=== PATIENT | male | born 1995 | race Caucasian/White ===

== ENCOUNTER 2018-03-05 18:35 | Day surgery (SDC) | payer MEDICAID, SELFPAY ==
[~2018-03-05 18:35] MED LIST: Iopamidol 370 76% 100 ML VIAL ONE
[2018-03-05 19:30] LABS: #Basophils 0.1 thou/uL (0.0-0.2); #Eosinphils 0.4 thou/uL (0.0-0.7); #Lymphocytes 2.1 thou/uL (1.20-3.40); #Monocytes 0.7 thou/uL (0.11-0.59); #Neutrophils 4.9 thou/uL (1.40-6.50); %Basophils 0.7 % (0.0-1.0); %Eosinophils 4.5 % (0.0-10.0); %Lymphocytes 25.5 % (21.0-51.0); %Monocytes 8.4 % (0.0-10.0); %Neutrophils 60.9 % (42.0-75.0); Mean Corpuscular Hemoglobin 30.4 pg (27.0-31.0); Mean Corpuscular Volume 89.4 fL (78.0-98.0); Mean Platelet Volume 7.9 fL (7.4-10.4); Platelet Count 208 thou/uL (130-400); RBC Distribution Width 12.3 % (11.5-14.5); Red Blood Cell (RBC) Count 5.26 mill/uL (4.70-6.10); White Blood Cell (WBC) Count 8.1 thou/uL (4.8-10.8)
[2018-03-05 19:50] LABS: ALT (SGPT) 20 U/L (8-55); AST (SGOT) 24 U/L (5-34); Albumin 4.7 g/dL (3.5-5.0); Alkaline Phosphatase 69 U/L (40-150); Anion Gap 13 mmol/L (10-20); BUN (Urea Nitrogen) 15 mg/dL (8.9-20.6); Bilirubin, Total 2.9 mg/dL (0.2-1.2); Calc. Creatinine Clearance 0 mL/min (70-130); Calcium 9.6 mg/dL (7.8-10.44); Carbon Dioxide 25 mmol/L (22-29); Chloride 105 mmol/L (98-107); Estimated GFR-MDRD Greater than 90; Globulin 2.9 g/dL (2.4-3.5); Glucose 83 mg/dL (70-105); Protein, Total 7.6 g/dL (6.0-8.3); Sodium 139 mmol/L (136-145)
--- NOTE | 2018-03-05 21:59 | CT ---
CT OF THE SOFT TISSUES OF THE NECK WITH IV CONTRAST 03/05/18 INDICATION: Possible foreign body stuck in the throat. COMPARISON: None. FINDINGS: The visualized intracranial contents are unremarkable appearing. The parotid and submandibular glands are normal appearing. The thyroid gland is normal appearing. No pathologically enlarged lymph nodes are evident. The visualized aerodigestive tract is unremarkable a ppearing. No definite radiopaque foreign body is seen within the visualized aerodigestive tract. The lung apices are clear. There is ectasia of the ascending aorta measuring up to 4.1 cm. The aortic arch measures 2.8 cm. No d efinite acute osseous abnormality is evident. IMPRESSION: 1. No visible foreign body seen within the visualized aerodigestive tract. 2. Ectasia of the ascending aorta. Followup with cardiology for echocardiogram is recommended. POS: ANÍBAL
[2018-03-05] MEDS ORDERED: Midazolam HCl 2 mg/2 ml Vial ONE (22:28)
[2018-03-05] MEDS ORDERED: Fentanyl 100 MCG/2 ML VIAL ONE (22:28)
--- NOTE | 2018-03-06 04:55 | CON ---
DATE OF CONSULTATION: 03/05/2018 GASTROENTEROLOGY ER CONSULTATION CHIEF COMPLAINT: "Food stuck in my esophagus." HISTORY OF PRESENT ILLNESS: Mr. Tinajero is a 22-year-old man, who swallowed several bites of steak last night at 7:00 p.m. over 24 hours ago. The food has been stuck ever since he has been unable to tolerate any fluids or anything else to eat or drink since then. He had one episode of similar dysph agia a few days ago that was resolved by vomiting the bolus back up. He reports frequent acid reflux symptoms. PAST MEDICAL HISTORY: Gastroesophageal reflux. PAST SURGICAL HISTORY: Otherwise negative. FAMILY HISTORY: Negative for GI malignancies. SOCIAL HISTORY: He drinks 6-12 beers a few days per week. He has a past use of marijuana and metham phetamine, but not recently. He smokes. ALLERGIES: CODEINE. MEDICATIONS: He takes BC powder frequently for headaches or toothache. He has been on ranitidine in the past for reflux, but not any time recently. REVIEW OF SYSTEMS: Negative x10 systems reviewed except as stated in the history of present illness. PHYSICAL EXAMINATION:. GENERAL: He is in no acute distress, alert and oriented x3. HEENT: Eyes have no scleral icterus. Oropharynx is clear without lesions. NECK: No cervical or supraclavicular lymphadenopathy. LUNGS: Clear to auscultation bilaterally. HEART: Regular rate and rhythm without murmur. ABDOMEN: Soft, nontender, nondistended. Bowel sounds are present. EXTREMITIES: No lower extremity edema. IMPRESSION: Esophageal food bolus impaction with steak and this has been present for over 24 hours. PLAN: Esophagogastroduodenoscopy with removal of foreign body.
--- NOTE | 2018-03-06 06:25 | OP ---
DATE OF PROCEDURE: 03/05/2018 PROCEDURE: Esophagogastroduodenoscopy with biopsy and removal of foreign body. PREOPERATIVE DIAGNOSIS: Esophageal food bolus impaction. OPERATIVE NOTE: Informed consent was obtained from the patient. He was sedated with general anesthe ben. The endoscope was advanced to the esophagus where large meat bolus impaction was encountered. This was removed in several pieces with a snare. The esophagus was eventually cleared and then the r emaining pieces could be pushed through to the stomach with the scope. He had concentric rings and v ertical furrows through the esophagus consistent with eosinophilic esophagitis. He did have focal ul ceration and inflammation at the distal esophagus. The GE junction had some irregular mucosa which w as biopsied. Biopsies were taken from the distal and proximal esophagus as well to evaluate for eosi nophilic esophagitis. Stomach had erosive gastritis in the antrum. Biopsies were obtained to rule o ut H. pylori. Retroflex views in the stomach were normal. The pylorus and first and second portions of the duodenum were normal. IMPRESSION: 1. Esophageal foreign body removed with the snare. 2. Esophageal findings suggestive of eosinophilic esophagitis with concentric rings and vertical fur rows. Biopsies were obtained to evaluate for eosinophilic esophagitis. 3. Ulceration and inflammation at the distal esophagus and GE junction. Biopsies were obtained. 4. Erosive gastritis likely secondary to the BC powder which contains aspirin. RECOMMENDATIONS: 1. Await histopathology. 2. Proton pump inhibitor twice daily with omeprazole 20 mg over the counter. 3. Follow up in GI clinic. Followup endoscopy can be performed depending on biopsy results. 4. If the biopsies do confirm eosinophilic esophagitis fluticasone and referral for food aller gy testing could be performed.
== END 2018-03-06 01:03 | disposition home or self-care (01) ==
LOC: ERS 18:35 → SDC/OP 23:51
PROVIDERS: ATTEND Internal Medicine Gastroenterology
DX: T18.128A Food in esophagus causing other injury, initial encounter (principal); K22.10 Ulcer of esophagus without bleeding; K29.60 Other gastritis without bleeding; K21.9 Gastro-esophageal reflux disease without esophagitis; F17.200 Nicotine dependence, unspecified, uncomplicated; Z79.899 Other long term (current) drug therapy; Z88.5 Allergy status to narcotic agent
CPT/HCPCS: 70491; 80053; 85025; 86850; 86900; 86901; 88305; 88312; 88313; J2250; J3010